=== PATIENT | female | born 1945 | race Caucasian/White ===

== ENCOUNTER 2024-04-25 21:00 | Emergency (ER) | payer MEDICARE ==
[~2024-04-25] VITALS: Ht 154.9 cm; Wt 52.0 kg
[~2024-04-25 21:00] MED LIST: ATOR40TA PO; BACL20TA PO; DULO20CA50 PO; LACT1CAP26 PO; LEVE750T6 PO; MIRA50TA PO; POTA20PA40 PO; PRIM50TA5 PO
[2024-04-25 21:59] LABS: BASOPHILS % (AUTO) 0.3 % (0-1); EOSINOPHILS # (AUTO) 0.1 X10'3 (0-0.9); HEMOGLOBIN 13.3 g/dl (12.0-16.0); LYMPHOCYTES # (AUTO) 0.4 X10'3 (1.1-4.8); NEUTROPHILS # (AUTO) 4.8 X10'3 (1.8-7.7)
[2024-04-25 22:00] LABS: EOSINOPHILS % (AUTO) 2.3 % (0-6); HEMATOCRIT 38.6 % (35.0-45.0); LYMPHOCYTES % (AUTO) 6.8 % (21-51); MEAN CORPUSCULAR HGB CONC 34.6 g/dL (33.0-36.5); MEAN CORPUSCULAR VOLUME 89.7 FL (78-98); MEAN PLATELET VOLUME 10.2 FL (7.4-10.4); MONOCYTES # (AUTO) 0.6 X10'3 (0-0.9); MONOCYTES % (AUTO) 10.4 % (2-12); NEUTROPHILS % (AUTO) 80.2 % (42-75); PLATELET COUNT 118 X10'3 (140-440); RED CELL DISTRIBUTION WIDTH 15.6 % (11.5-14.5)
[2024-04-25 22:16] LABS: ALANINE AMINOTRANSFERASE 103 U/L (12-78); ALBUMIN 2.2 G/DL (3.4-5.0); ALBUMIN/GLOBULIN RATIO 0.3 (1.1-1.5); ALKALINE PHOSPHATASE 249 IU/L (46-116); ANION GAP 4 (8-16); ASPARTATE AMINO TRANSFERASE 131 U/L (10-37); BILIRUBIN,TOTAL 0.5 MG/DL (0.1-1.0); BLOOD UREA NITROGEN 14 MG/DL (7-18); BUN/CREATININE RATIO 21.9 (10.0-20.0); CALCIUM 8.4 MG/DL (8.5-10.1); CHLORIDE 104 MMOL/L (99-107); CREATININE 0.64 MG/DL (0.40-0.90); GLUCOSE 102 MG/DL (70-104); POTASSIUM 4.2 MMOL/L (3.5-5.1); SODIUM 137 MMOL/L (135-145); TOTAL CARBON DIOXIDE 29.2 MMOL/L (24-32); TOTAL PROTEIN 8.7 G/DL (6.4-8.2); eCRCL 54 ML/MIN; eGFR 90 ML/MIN
[2024-04-25 22:21] LABS: BILIRUBIN,DIRECT 0.2 MG/DL (0-0.3); PRO BRAIN NATRIURETIC PEPTIDE 63 PG/ML (0-450)
[2024-04-25 22:26] VITALS: TEMP 98.2
[2024-04-26] MEDS ORDERED: doxycycline inj 100 MG in normal saline 100ml IV soln 100 ML IV ONE (00:30)
[2024-04-26] MEDS ORDERED: NIRM1TAB9 PO (00:50)
[2024-04-26] MEDS ORDERED: DEXA6TAB PO (00:50)
[2024-04-26] MEDS ORDERED: DOXY100T67 PO (00:51)
[2024-04-26] MEDS: dexamethasone sod phosphate 10mg/ml inj IV STA (01:20)
[2024-04-26] MEDS: DOXYCYCLINE 100MG CAPSULE PO STA (01:20)
[2024-04-26 01:41] VITALS: BP 133/72; PULSE 82; RESP 16; O2SAT 93
== END 2024-04-26 01:45 | disposition home or self-care (01) ==
LOC: ER 21:01
DX: U07.1 COVID-19 (principal); J98.4 Other disorders of lung; E78.5 Hyperlipidemia, unspecified; Z88.2 Allergy status to sulfonamides; Z88.5 Allergy status to narcotic agent; Z88.1 Allergy status to other antibiotic agents; Z79.899 Other long term (current) drug therapy
CPT/HCPCS: 36415; 71045; 80048; 80076; 83605; 83880; 84145; 84484; 85025; 87040; 87811; 93005; 96374; 99285; J1100